=== PATIENT | female | born 1945 | race Caucasian/White ===

== ENCOUNTER 2017-04-29 16:16 | Emergency (ER) | payer MEDICARE, BC ==
--- NOTE | 2017-04-29 16:22 | UC ---
Respiratory Complaint HPI - HPI Summary HPI Summary: 71 year old female presents with complains of cough, post nasal drip and sinus congestion. - History of Current Complaint Stated Complaint: COUGH Time Seen by Provider: 04/29/17 16:22 - Risk Factors Pulmonary Embolism Risk Factors: Negative Cardiac Risk Factors: Negative Tuberculosis Risk Factors: Negative - Allergies/Home Medications Allergies/Adverse Reactions: Allergies Allergy/AdvReac Type Severity Reaction Status Date / Time Penicillins Allergy Severe Hives Verified 04/29/17 16:36 Sulfa Drugs Allergy Severe Hives Verified 04/29/17 16:36 ENVIRONMENTAL Allergy SNEEZING, Uncoded 04/29/17 16:36 ITCHY EYES, RUNNY NOSE Home Medications: Home Medications Benzonatate CAP* [Tessalon 100 MG CAP*] 100 mg PO QID PRN 04/29/17 [History Confirmed 04/29/17] PMH/Surg Hx/FS Hx/Imm Hx Previously Healthy: Yes - Surgical History Surgical History: Yes Surgery Procedure, Year, and Place: bilateral mastectomy/reconstruction 2008 - Social History Alcohol Use: None Substance Use Type: None Smoking Status (MU): Never Smoked Tobacco Review of Systems Constitutional: Negative Skin: Negative Eyes: Negative ENT: Sore Throat, Nasal Discharge, Sinus Congestion Respiratory: Cough Cardiovascular: Negative Gastrointestinal: Negative Genitourinary: Negative Motor: Negative Neurovascular: Negative Musculoskeletal: Negative Neurological: Negative Psychological: Negative All Other Systems Reviewed And Are Negative: Yes Physical Exam Triage Information Reviewed: Yes Vital Signs Reviewed: Yes Eye Exam: Normal ENT Exam: Normal Dental Exam: Normal Neck exam: Normal Neck: Positive: 1 Respiratory: Positive: Rhonchi, Wheezing Cardiovascular Exam: Normal Abdominal Exam: Normal Musculoskeletal Exam: Normal Neurological Exam: Normal Psychological Exam: Normal Skin Exam: Normal Respiratory Course/Dx - Differential Dx/Diagnosis Provider Diagnoses: cough. post nasal drip Discharge - Discharge Plan Condition: Stable Disposition: HOME Prescriptions: DOXYcycline CAP(*) [DOXYcycline 100MG CAP(*)] 100 mg PO BID #14 cap LoraTADine TAB(NF) [Claritin 10 MG TAB(NF)] 10 mg PO DAILY #30 tab Methylprednisolone [Medrol Dosepak 4 MG*] 4 mg PO .SEE FRANCOIS INSTRUCTION #21 tab guaiFENesin/CODIEN 100MG-10MG* [Robitussin AC 100Mg-10Mg*] 5 ml PO Q8H PRN #120 ml MDD 15 ml PRN Reason: Cough Patient Education Materials: Acute Bronchitis (ED), Acute Cough (ED) Referrals: Chu Mcdonald MD [Primary Care Provider] -
[2017-04-29 16:35] VITALS: BP 148/84
== END 2017-04-29 16:57 | disposition home or self-care (01) ==
LOC: UCEAST 16:16
DX: R05 Cough (principal); R09.82 Postnasal drip; Z88.0 Allergy status to penicillin; Z88.2 Allergy status to sulfonamides
CPT/HCPCS: 99212; G0463

== ENCOUNTER 2017-07-31 21:05 | Inpatient (IN) | payer MEDICARE, BC ==
[2017-07-31] MEDS ORDERED: Ketorolac INJ* 30 MG/ML 1 ML VIAL IV PUSH ONE (23:17)
[2017-07-31] MEDS ORDERED: NS 0.9% 1000 ML* 1,000 ML IV ONE (23:17)
[2017-08-01 00:08] LABS: Hematocrit 34 % (35-47); Hemoglobin 11.9 g/dl (12.0-16.0); Mean Corpuscular HGB Conc 35 g/dl (31-36); Mean Corpuscular Hemoglobin 35 pg (27-31); Mean Corpuscular Volume 101 fL (80-97); Mean Platelet Volume 8 um3 (7.4-10.4); Platelet Count 319 10^3/ul (150-450); Red Blood Count 3.43 10^6/ul (4.0-5.4); Red Cell Distribution Width 12 % (10.5-15); White Blood Count 14.5 10^3/ul (3.5-10.8)
[2017-08-01 00:19] LABS: EGFR Non-African American 55.3 (>60)
[2017-08-01 00:22] LABS: INR 0.93 (0.77-1.02)
[2017-08-01] MEDS ORDERED: Levofloxacin 750 MG IVPREMIX(* 750 MG/150 ML BAG IVPB ONE (00:46)
[2017-08-01 00:47] LABS: ABS Basophils 0 10^3/ul (0-0.2); ABS Eosinophils 0.1 10^3/ul (0-0.6); ABS Lymphocytes 0.8 10^3/ul (1.0-4.8); ABS Monocytes 1.6 10^3/ul (0-0.8); ABS Nucleated RBC 0 10^3/ul; Eosinophil % 0.7 % (0-6); Lymphocyte % 5.3 % (25-47); Nucleated Red Blood Cells % 0
[2017-08-01] MEDS ORDERED: NS 0.9% 1000 ML* 1,000 ML IV ONE (00:48)
[2017-08-01 01:15] LABS: Urine Appearance Clear; Urine Blood 1+ (Negative); Urine Color Straw; Urine Ketones Negative (Negative); Urine Protein Negative (Negative); Urine Specific Gravity 1.006 (1.010-1.030); Urine Urobilinogen Negative (Negative)
[2017-08-01] MEDS ORDERED: Acetaminophen TAB* 325 MG PO PRN (01:17)
[2017-08-01] MEDS ORDERED: Al Hydrox/Mg Hydrox/Simet LIQ* 30 ML UDC PO PRN (01:17)
[2017-08-01] MEDS ORDERED: Senna TAB PO PRN (01:17)
[2017-08-01] MEDS ORDERED: Docusate CAP* 100 MG PO PRN (01:17)
[2017-08-01] MEDS ORDERED: Ondansetron INJ* 2 MG/ML VIAL IV PRN (01:17)
[2017-08-01] MEDS ORDERED: Albuterol/Ipratropium NEB.SOL* Albuterol 2.5 MG/Ipratropium 0.5 MG 3 ML INH PRN (01:22)
--- NOTE | 2017-08-01 03:15 | HP ---
CC: Chu Mcdonald MD * HISTORY AND PHYSICAL: DATE OF ADMISSION: 08/01/17 TIME OF EVALUATION: 0100. CHIEF COMPLAINT: Cough and shortness of breath. HISTORY OF PRESENT ILLNESS: This is a 71-year-old female with past medical history of asthma and obstructive sleep apnea who presents to the emergency room with worsening shortness of breath, fever, and hypoxia. The patient states she has been suffering with a chronic cough since the fall. She had 2 episodes of bronchitis where she was on antibiotics and prednisone back on April 17. She really has not been herself since with this chronic dry cough. She was recently placed on a 10- day prednisone taper, which really has not made any difference in her cough. Today she was at [facility] with her sister who was getting an ablation when she felt more short of breath, cough worsened and she was noted to have a fever. She went to urgent care where she was noted to have decreased oxygen sats and they sent her to the emergency room for further evaluation. She states just today her cough and shortness of breath have been worse. No chest pain, no nausea, vomiting, diarrhea. No abdominal pain. She has had a decrease in appetite. No changes in her weight. Otherwise, remaining review of systems negative. In the emergency room, the patient had labs and imaging. She was given Toradol 30 mg, Levaquin and was referred to the hospitalist service for further evaluation. PAST MEDICAL HISTORY: 1. Asthma. 2. History of breast cancer, bilateral mastectomy in 1990 and reconstruction in 2008. 3. History of cataracts. 4. Arthritis. 5. Obstructive sleep apnea, on CPAP. 6. Hypertension. 7. Depression. MEDICATIONS: 1. Escitalopram 20 mg p.o. daily. 2. Hydrochlorothiazide 12.5 mg p.o. daily. 3. Meloxicam 7.5 mg daily. 4. Losartan 50 mg daily. 5. 20 mg daily. 6. Atrovent. 7. Flovent. 8. Albuterol. 9. Valacyclovir 500 mg b.i.d. as needed for hepatic oral outbreak. ALLERGIES: PENICILLIN, SULFA, ENVIRONMENTAL. FAMILY HISTORY: Reviewed, noncontributory. SOCIAL HISTORY: The patient lives in home with her who does have dementia, her son also lives with them. Her healthcare proxy is her sister and her son Ronnie. Code status is full code. No history of smoking. She has 1 glass of wine a few nights a week. REVIEW OF SYSTEMS: A 14-point review of systems as mentioned in the HPI, otherwise negative. PHYSICAL EXAMINATION GENERAL: No acute distress. Resting comfortably with her family at the bedside. VITAL SIGNS: Temp 101.9, pulse rate 98, respiratory rate 16, oxygen saturation 92% on room air, and blood pressure 157/73. HEENT: Head normocephalic. Pupils equal and reactive, anicteric. Oropharynx: Mucous membranes moist. Posterior oropharynx is erythematous. No exudate. NECK: Supple. No lymphadenopathy. No nuchal rigidity. RESPIRATORY: Diminished breath sounds. Bilateral rhonchi. No expiratory wheezing. CARDIAC: Regular rate and rhythm. Soft systolic murmur heard throughout. ABDOMEN: Soft, nontender, and nondistended. EXTREMITIES: No clubbing, cyanosis, or edema. NEUROLOGIC: Alert and oriented x3. No focal neurologic deficits. LABORATORY DATA: White count 14.5, hemoglobin 11.9, hematocrit 34, platelets 319,000. INR 0.93. Sodium 125, potassium 3.7, chloride 91, bicarb 23, BUN 17, creatinine 0.99, glucose 129. AST is 77, ALT 85, alk phos 157. Urinalysis is unremarkable. Serology is negative for flu. RADIOGRAPHIC DATA: Chest x-ray, increased opacification in the right lower lobe. EKG shows normal sinus rhythm with right bundle branch block. ASSESSMENT: This is a 71-year-old female with a past medical history of asthma , obstructive sleep apnea who presents to the emergency room with worsening shortness of breath and fever. Worsening shortness of breath and cough. Assessment: The patient's findings are most consistent with community acquired pneumonia. She was hypoxic in urgent care, no evidence of hypoxia here. She is on room air. In terms of her chronic cough, it could be her losartan which can cause a dry cough, not as common as an JEFF inhibitor, but worthwhile discontinuing to do a trial of, as it seems that the prednisone has not improved her dry cough at all. PLAN: 1. We will admit her for observation overnight. Continue on IV fluids, continue on Levaquin. We will complete her 10-day taper, she states that tomorrow is her last day. We will give her the 20 mg as prescribed. Continue on her inhaler regimen with incentive spirometer and cough suppressant. We will repeat her labs in the morning as well. 2. Elevated LFTs. The patient is asymptomatic from LFTs. We will repeat them in the morning. I will recommend outpatient followup if they remain elevated. Chronic medical problems: 1. Hypertension. As mentioned, stopping her losartan and we will start her on amlodipine. Going to hold her hydrochlorothiazide in the setting of giving her fluids. 2. Depression. Continue escitalopram. 3. Obstructive sleep apnea, resume her CPAP. 4. Asthma, resume her in-home inhaler regimen. 5. FEN. Placed her on a regular diet. 6. DVT prophylaxis. The patient's score is moderate risk. We will place her on heparin subcu t.i.d. 7. Code status. Full code. TIME SPENT: Greater than 50 minutes spent doing the history and physical, more than half time spent in direct patient contact. [id number]/[facility] #: [id number] JING
[2017-08-01] MEDS: guaiFENesin/CODIEN 100MG-10MG* 5 ML UDC PO PRN ×4 (04:04→21:09)
[2017-08-01] MEDS: Heparin VIAL(*) 5000 UNITS/ML VIAL (FIVE THOUSAND) SUBCUT SCH ×3 (05:02→21:11)
--- NOTE | 2017-08-01 05:32 | ED ---
Heather Ly Julia, scribed for Pierce Juárez MD on 07/31/17 at 2331 . Respiratory - HPI Summary HPI Summary: This patient is a 71 year old F presenting to [facility] accompanied by family with a chief complaint of fever of 101.9 beginning today. Patient reports productive cough for 1 month, sore throat, and SOB. Patient denies body aches, pain, chills , ear pain, or urinary symptoms. Patient was seen at [facility] urgent care and referred to ED. Patient is currently taking Prednisone, a corticosteroid, and Atrovent. - History of Current Complaint Chief Complaint: EDUpperRespComplaint Stated Complaint: ASTHMA/COUGH/SOB/FEVER Time Seen by Provider: 07/31/17 23:15 Hx Obtained From: Patient Onset/Duration: Gradual Onset, Still Present Timing: Constant Pain Intensity: 0 Sputum Amount: Swallowed by Patient Associated Signs and Symptoms: Fever, SOB - Allergy/Home Medications Allergies/Adverse Reactions: Allergies Allergy/AdvReac Type Severity Reaction Status Date / Time Penicillins Allergy Severe Hives Verified 07/31/17 21:37 Sulfa Drugs Allergy Severe Hives Verified 07/31/17 21:37 ENVIRONMENTAL Allergy SNEEZING, Uncoded 07/31/17 21:37 ITCHY EYES, RUNNY NOSE PMH/Surg Hx/FS Hx/Imm Hx Endocrine/Hematology History: Reports: Hx Thyroid Disease Denies: Hx Diabetes Cardiovascular History: Reports: Hx Hypertension - borderline Respiratory History: Reports: Hx Asthma Denies: Hx Chronic Obstructive Pulmonary Disease (COPD) GI History: Denies: Hx Ulcer History: Reports: Other Problems/Disorders - HX OF FREQ UTI, NO PROBLEMS LAST COUPLE OF YEARS Musculoskeletal History: Reports: Hx Arthritis Denies: Hx Rheumatoid Arthritis, Hx Osteoporosis Sensory History: Reports: Hx Cataracts, Hx Contacts or Glasses - READING GLASSES Denies: Hx Hearing Aid Opthamlomology History: Reports: Hx Cataracts, Hx Contacts or Glasses - READING GLASSES Neurological History: Denies: Hx Headaches Psychiatric History: Reports: Hx Depression - CONTROL WITH MEDS - Cancer History Cancer Type, Location and Year: breast - Surgical History Surgery Procedure, Year, and Place: bilateral mastectomy/reconstruction 2008 Hx Anesthesia Reactions: No Infectious Disease History: No Infectious Disease History: Denies: Hx Clostridium Difficile, Hx Hepatitis, Hx Human Immunodeficiency Virus (HIV), Hx of Known/Suspected MRSA, Hx Shingles, Hx Tuberculosis, Hx Known/ Suspected VRE, Hx Known/Suspected VRSA, History Other Infectious Disease, Traveled Outside the [place] in Last 30 Days - Social History Alcohol Use: None Substance Use Type: Reports: None Smoking Status (MU): Never Smoked Tobacco Review of Systems Constitutional: Negative - body aches Positive: Fever. Negative: Chills Positive: Sore Throat. Negative: Ear Ache Positive: Shortness Of Breath, Cough Positive: no symptoms reported All Other Systems Reviewed And Are Negative: Yes Physical Exam - Summary Physical Exam Summary: Appearance: Well appearing, no pain distress Skin: hot, dry, reflects adequate perfusion Head/face: normal Eyes: EOMI, FRANC ENT: no nasal congestion Neck: supple, non-tender Respiratory: CTA, breath sounds present Cardiovascular: RRR, pulses symmetrical Abdomen: non-tender, soft Bowel: present Musculoskeletal: normal, strength/ROM intact, no LE edema Neuro: normal, sensory motor intact, A&Ox3 Upon re-evaluation crackles at lung bases were present Triage Information Reviewed: Yes Vital Signs On Initial Exam: Initial Vitals Temp Pulse Resp BP Pulse Ox 101.9 F 98 16 157/73 93 07/31/17 21:30 07/31/17 21:30 07/31/17 21:30 07/31/17 21:30 07/31/17 21:30 Vital Signs Reviewed: Yes Diagnostics - Vital Signs Vital Signs Temp Pulse Resp BP Pulse Ox 07/31/17 21:30 101.9 F 98 16 157/73 93 - Laboratory Lab Results: Lab Results 07/31/17 07/31/17 07/31/17 Range/Units 23:40 23:40 23:40 WBC 14.5 H (3.5-10.8) 10^3/ul RBC 3.43 L (4.0-5.4) 10^6/ul Hgb 11.9 L (12.0-16.0) g/dl Hct 34 L (35-47) % MCV 101 H (80-97) fL MCH 35 H (27-31) pg MCHC 35 (31-36) g/dl RDW 12 (10.5-15) % Plt Count 319 (150-450) 10^3/ul MPV 8 (7.4-10.4) um3 Neut % (Auto) 82.7 (38-83) % Lymph % (Auto) 5.3 L (25-47) % [place] % (Auto) 11.1 H (1-9) % Eos % (Auto) 0.7 (0-6) % Baso % (Auto) 0.2 (0-2) % Absolute Neuts (auto) 12.0 H (1.5-7.7) 10^3/ul Absolute Lymphs (auto) 0.8 L (1.0-4.8) 10^3/ul Absolute Monos (auto) 1.6 H (0-0.8) 10^3/ul Absolute Eos (auto) 0.1 (0-0.6) 10^3/ul Absolute Basos (auto) 0 (0-0.2) 10^3/ul Absolute Nucleated RBC 0 10^3/ul Nucleated RBC % 0 INR (Anticoag Therapy) 0.93 (0.77-1.02) APTT 18.8 L (26.0-36.3) seconds Sodium 125 L (133-145) mmol/L Potassium 3.7 (3.5-5.0) mmol/L Chloride 91 L (101-111) mmol/L Carbon Dioxide 23 (22-32) mmol/L Anion Gap 11 (2-11) mmol/L BUN 17 (6-24) mg/dL Creatinine 0.99 H (0.51-0.95) mg/dL Est GFR ( Amer) 71.1 (>60) Est GFR (Non-Af Amer) 55.3 (>60) BUN/Creatinine Ratio 17.2 (8-20) Glucose 129 H (70-100) mg/dL Lactic Acid (0.5-2.0) mmol/L Calcium 8.9 (8.6-10.3) mg/dL Total Bilirubin 1.00 (0.2-1.0) mg/dL AST 77 H (13-39) U/L ALT 85 H (7-52) U/L Alkaline Phosphatase 157 H (34-104) U/L Troponin I 0.02 (<0.04) ng/mL Total Protein 6.8 (6.4-8.9) g/dL Albumin 3.5 (3.2-5.2) g/dL Globulin 3.3 (2-4) g/dL Albumin/Globulin Ratio 1.1 (1-3) Urine Color Urine Appearance Urine pH (5-9) Ur Specific [place] (1.010-1.030) Urine Protein (Negative) Urine Ketones (Negative) Urine Blood (Negative) Urine Nitrate (Negative) Urine Bilirubin (Negative) Urine Urobilinogen (Negative) Ur Leukocyte Esterase (Negative) Urine WBC (Auto) (Absent) Urine RBC (Auto) (Absent) Urine Bacteria (Absent) Urine Glucose (Negative) Influenza A (Rapid) (Negative) Influenza B (Rapid) (Negative) 07/31/17 08/01/17 08/01/17 Range/Units 23:40 00:55 01:06 WBC (3.5-10.8) 10^3/ul RBC (4.0-5.4) 10^6/ul Hgb (12.0-16.0) g/dl Hct (35-47) % MCV (80-97) fL MCH (27-31) pg MCHC (31-36) g/dl RDW (10.5-15) % Plt Count (150-450) 10^3/ul MPV (7.4-10.4) um3 Neut % (Auto) (38-83) % Lymph % (Auto) (25-47) % [place] % (Auto) (1-9) % Eos % (Auto) (0-6) % Baso % (Auto) (0-2) % Absolute Neuts (auto) (1.5-7.7) 10^3/ul Absolute Lymphs (auto) (1.0-4.8) 10^3/ul Absolute Monos (auto) (0-0.8) 10^3/ul Absolute Eos (auto) (0-0.6) 10^3/ul Absolute Basos (auto) (0-0.2) 10^3/ul Absolute Nucleated RBC 10^3/ul Nucleated RBC % INR (Anticoag Therapy) (0.77-1.02) APTT (26.0-36.3) seconds Sodium (133-145) mmol/L Potassium (3.5-5.0) mmol/L Chloride (101-111) mmol/L Carbon Dioxide (22-32) mmol/L Anion Gap (2-11) mmol/L BUN (6-24) mg/dL Creatinine (0.51-0.95) mg/dL Est GFR ( Amer) (>60) Est GFR (Non-Af Amer) (>60) BUN/Creatinine Ratio (8-20) Glucose (70-100) mg/dL Lactic Acid 0.7 (0.5-2.0) mmol/L Calcium (8.6-10.3) mg/dL Total Bilirubin (0.2-1.0) mg/dL AST (13-39) U/L ALT (7-52) U/L Alkaline Phosphatase (34-104) U/L Troponin I (<0.04) ng/mL Total Protein (6.4-8.9) g/dL Albumin (3.2-5.2) g/dL Globulin (2-4) g/dL Albumin/Globulin Ratio (1-3) Urine Color Straw Urine Appearance Clear Urine pH 7.0 (5-9) Ur Specific [place] 1.006 L (1.010-1.030) Urine Protein Negative (Negative) Urine Ketones Negative (Negative) Urine Blood 1+ H (Negative) Urine Nitrate Negative (Negative) Urine Bilirubin Negative (Negative) Urine Urobilinogen Negative (Negative) Ur Leukocyte Esterase Negative (Negative) Urine WBC (Auto) Trace(0-5/hpf) (Absent) Urine RBC (Auto) Trace(0-2/hpf) (Absent) Urine Bacteria Absent (Absent) Urine Glucose 1+(50 mg/dl) H (Negative) Influenza A (Rapid) Negative (Negative) Influenza B (Rapid) Negative (Negative) Result Diagrams: 07/31/17 23:40 07/31/17 23:40 Lab Statement: Any lab studies that have been ordered have been reviewed, and results considered in the medical decision making process. - Radiology CXR Radiology Interpretation Completed By: ED Physician - Left basilar infiltrate - EKG 9731 Cardiac Rate: NL EKG Rhythm: Sinus Rhythm - at88 BPM ST Segment: Non-Specific EKG Interpretation: RBBB Disposition - Course Course Of Treatment: Pt presents with fever of 101.9 beginning today. Patient reports productive cough for 1 month, sore throat, and SOB. EKG is of no acute concern. CXR reveals left basilar infiltrates. Labs reveal sodium of 125 and chloride of 91. IV abx, IV fluids. Admit for further. No hypoxia. - Differential Dx - Cardiopulmonary Differential Diagnoses - Cardiopulmonary: Pleurisy, Pulmonary Embolism, Other - pneumonia, UTI, sepsis - Diagnoses Provider Diagnoses: Left lower lobe pneumonia, Hyponatremia Discharge - Discharge Plan Condition: Fair Disposition: ADMITTED TO [facility] documentation as recorded by the Heather evans Julia accurately reflects the service I personally performed and the decisions made by Franck dooley Kirk, MD.
[2017-08-01] MEDS: NS 0.9% 1000 ML* 1,000 ML IV SCH ×3 (06:14→23:34)
[2017-08-01 06:43] LABS: ABS Basophils 0 10^3/ul (0-0.2); ABS Eosinophils 0 10^3/ul (0-0.6); ABS Lymphocytes 0.5 10^3/ul (1.0-4.8); ABS Monocytes 0.8 10^3/ul (0-0.8); ABS Neutrophils 9.9 10^3/ul (1.5-7.7); ABS Nucleated RBC 0 10^3/ul; Eosinophil % 0 % (0-6); Hematocrit 31 % (35-47); Lymphocyte % 4.7 % (25-47); Mean Corpuscular HGB Conc 35 g/dl (31-36); Mean Corpuscular Hemoglobin 36 pg (27-31); Mean Corpuscular Volume 100 fL (80-97); Mean Platelet Volume 7 um3 (7.4-10.4); Nucleated Red Blood Cells % 0; Platelet Count 288 10^3/ul (150-450); Red Cell Distribution Width 12 % (10.5-15); White Blood Count 11.1 10^3/ul (3.5-10.8)
[2017-08-01 07:06] LABS: EGFR Non-African American 68.7 (>60)
--- NOTE | 2017-08-01 07:47 | RAD ---
INDICATION: Shortness of breath. COMPARISON: Comparison is made with a prior chest x-ray study from May 16, 2017. TECHNIQUE: Dual-energy PA and lateral views of the chest were obtained. FINDINGS: The heart is within normal limits in size. There are bilateral lower lobe infiltrates suggestive of pneumonia. No pleural effusion is seen. IMPRESSION: BILATERAL LOWER LOBE INFILTRATES MOST CONSISTENT WITH PNEUMONIA. RECOMMEND FOLLOW-UP CHEST X-RAYS TO RESOLUTION.
[2017-08-01] MEDS: CMCS Escitalopram (NF) 10 MG TAB PO SCH (08:20)
[2017-08-01] MEDS: amLODIPine TAB* 5 MG PO SCH (08:20)
[2017-08-01] MEDS ORDERED: Spiriva Inhaler DEVICE* 1 EACH DEVICE INH ONE (09:00)
[2017-08-01] MEDS ORDERED: predniSONE TAB* 20 MG PO ONE (09:00)
[2017-08-01] MEDS: Tiotropium CAP.INH* CAP.INH/18 MCG (USE ORDER SET !) INH SCH (09:06)
--- NOTE | 2017-08-01 13:25 | PN ---
Subjective Date of Service: 08/01/17 Interval History: Ms. Bergman reports that she is doing minimally better today. She continues to have a harsh nonproductive cough and becomes quite short of breath with this. She denies chest pain, nausea, or abdominal pain. Objective Active Medications: Acetaminophen (Tylenol Tab*) 650 mg PO Q4H PRN Al Hydrox/Mg Hydrox/Simethicone (Maalox Plus*) 30 ml PO Q6H PRN Albuterol/Ipratropium (Duoneb (Albuterol 2.5 Mg/Ipratropium 0.5 Mg)) 1 neb INH Q4H PRN Amlodipine Besylate (Norvasc Tab*) 5 mg PO DAILY JASMYNE Docusate Sodium (Colace Cap*) 100 mg PO BID PRN Escitalopram Oxalate (Lexapro (Nf)) 20 mg PO QAM JASMYNE Guaifenesin/Codeine Phosphate (Robitussin Ac 100mg-10mg*) 5 ml PO Q4H PRN Heparin Sodium (Porcine) (Heparin Vial(*)) 5,000 units SUBCUT Q8HR JASMYNE Sodium Chloride (Ns 0.9% 1000 Ml*) 1,000 mls @ 125 mls/hr IV PER RATE JASMYNE Levofloxacin (Levaquin Tab*) 750 mg PO 2200 JASMYNE Montelukast Sodium (Singulair Tab*) 10 mg PO 2100 JASMYNE Ondansetron HCl (Zofran Inj*) 4 mg IV Q4H PRN Senna (Senokot Tab*) 1 tab PO BID PRN Tiotropium [place] (Spiriva Cap.Inh*) 1 cap INH DAILY [facility] Vital Signs: Temp Pulse Resp BP Pulse Ox 97.9 F 70 16 142/66 92 08/01/17 08:03 08/01/17 11:10 08/01/17 11:10 08/01/17 08:03 08/01/17 11:10 Oxygen Devices in Use Now: None Appearance: Female lying in bed in NAD Eyes: No Scleral Icterus Ears/Nose/Mouth/Throat: Mucous Membranes Moist Neck: Trachea Midline Respiratory: Symmetrical Chest Expansion and Respiratory Effort, - - Crackles to left base Cardiovascular: NL Sounds; No Murmurs; No JVD, No Edema Abdominal: NL Sounds; No Tenderness; No Distention Lymphatic: No Cervical Adenopathy Extremities: No Edema Skin: No Rash or Ulcers Neurological: Alert and Oriented x 3, NL Muscle Strength and Tone Nutrition: Taking PO's Result Diagrams: 08/01/17 06:26 08/01/17 06:26 Additional Lab and Data: . Assess/Plan/Problems-Billing Assessment: Ms. Bergman is a 71 yo female with a PMH of asthma, RANDALL, and CPAP who was admitted on 07/31/17 with pneumonia. - Patient Problems (1) Pneumonia Comment: - Minimal improvement overnght, deserves further monitoring give early AM admission and indolent course and failure of outpatient treatment. - Continue levaquin. (2) Hyponatremia Comment: - Improved with IV fluids. - Recheck in AM. (3) Elevated LFTs Comment: - No change overnight. - Likely secondary to acute illness - Recheck in AM. (4) Hypertension Comment: - SBP 140-150. - Continue amlodipine. (5) RANDALL (obstructive sleep apnea) Comment: - Continue home cpap. (6) Depression Comment: - Continue escitalopram. (7) DVT prophylaxis Comment: - Heparin SQ. (8) Full code status Status and Disposition: Inpatient. Plan for monitoring, IVF and abx overnight
[2017-08-01] MEDS ORDERED: Montelukast Sodium TAB* 10 MG PO SCH (21:00)
[2017-08-01] MEDS ORDERED: Levofloxacin TAB* 750 MG PO SCH (22:00)
[2017-08-02] MEDS: Heparin VIAL(*) 5000 UNITS/ML VIAL (FIVE THOUSAND) SUBCUT SCH (05:38)
[2017-08-02 07:17] LABS: EGFR Non-African American 76.2 (>60)
[2017-08-02] MEDS: amLODIPine TAB* 5 MG PO SCH (07:48)
[2017-08-02] MEDS: CMCS Escitalopram (NF) 10 MG TAB PO SCH (07:48)
[2017-08-02] MEDS: NS 0.9% 1000 ML* 1,000 ML IV SCH (07:50)
--- NOTE | 2017-08-02 08:56 | PN ---
Subjective Date of Service: 08/02/17 Interval History: Ms. Bergman reports that she had a frequent productive cough overnight. She remains off oxygen and is ambulating in her room independently. She denies chest pain, nausea, or abdominal pain and is tolerating oral intake well. Objective Active Medications: Acetaminophen (Tylenol Tab*) 650 mg PO Q4H PRN Al Hydrox/Mg Hydrox/Simethicone (Maalox Plus*) 30 ml PO Q6H PRN Albuterol/Ipratropium (Duoneb (Albuterol 2.5 Mg/Ipratropium 0.5 Mg)) 1 neb INH Q4H PRN Amlodipine Besylate (Norvasc Tab*) 5 mg PO DAILY JASMYNE Docusate Sodium (Colace Cap*) 100 mg PO BID PRN Escitalopram Oxalate (Lexapro (Nf)) 20 mg PO QAM JASMYNE Guaifenesin/Codeine Phosphate (Robitussin Ac 100mg-10mg*) 5 ml PO Q4H PRN Heparin Sodium (Porcine) (Heparin Vial(*)) 5,000 units SUBCUT Q8HR JASMYNE Sodium Chloride (Ns 0.9% 1000 Ml*) 1,000 mls @ 125 mls/hr IV PER RATE JASMYNE Levofloxacin (Levaquin Tab*) 750 mg PO 2200 JASMYNE Montelukast Sodium (Singulair Tab*) 10 mg PO 2100 JASMYNE Ondansetron HCl (Zofran Inj*) 4 mg IV Q4H PRN Senna (Senokot Tab*) 1 tab PO BID PRN Tiotropium [place] (Spiriva Cap.Inh*) 1 cap INH DAILY [facility] Vital Signs: Temp Pulse Resp BP Pulse Ox 98.2 F 71 16 130/63 96 08/02/17 07:30 08/02/17 07:30 08/02/17 07:45 08/02/17 07:30 08/02/17 07:45 Oxygen Devices in Use Now: None Appearance: Female lying in bed in NAD Eyes: No Scleral Icterus Ears/Nose/Mouth/Throat: Mucous Membranes Moist Neck: Trachea Midline Respiratory: Symmetrical Chest Expansion and Respiratory Effort, Clear to Auscultation Cardiovascular: NL Sounds; No Murmurs; No JVD, No Edema Abdominal: NL Sounds; No Tenderness; No Distention Lymphatic: No Cervical Adenopathy Extremities: No Edema Skin: No Rash or Ulcers Neurological: Alert and Oriented x 3, NL Muscle Strength and Tone Nutrition: Taking PO's Result Diagrams: 08/01/17 06:26 08/02/17 06:26 Additional Lab and Data: . Assess/Plan/Problems-Billing Assessment: Ms. Bergman is a 71 yo female with a PMH of asthma, RANDALL, and CPAP who was admitted on 07/31/17 with pneumonia. - Patient Problems (1) Pneumonia Comment: - Continued improvement, remains off oxygen and afebrile. - Continue levaquin to complete a 7 day course. (2) Hyponatremia Comment: - Resolved. (3) Elevated LFTs Comment: - Resolving. (4) Hypertension Comment: - SBP 140-150. - Continue amlodipine. (5) RANDALL (obstructive sleep apnea) Comment: - Continue home cpap. (6) Depression Comment: - Continue escitalopram. (7) DVT prophylaxis Comment: - Heparin SQ. (8) Full code status Status and Disposition: Inpatient. Discharge to home.
[2017-08-02] MEDS: Tiotropium CAP.INH* CAP.INH/18 MCG (USE ORDER SET !) INH SCH (11:01)
[2017-08-02 12:54] VITALS: BP 145/67
--- NOTE | 2017-08-02 15:51 | DS ---
AMENDED REPORT NOW INCLUDES COSIGNER DESIGNATION - ESIGNED BEFORE ADJUSTMENT CC: Dr. Mcdonald * DATE OF ADMISSION: 08/01/2017. DATE OF DISCHARGE: 08/02/2017. ATTENDING PHYSICIAN: Dr. Carmen Armijo * (dictation provided by Ivonne Simmons NP ). PRIMARY DIAGNOSIS: Pneumonia. SECONDARY DIAGNOSES: 1. History of asthma. 2. Breast cancer, status post bilateral mastectomy in 1990 and reconstruction in 2008. 3. History of cataract. 4. Arthritis. 5. Obstructive sleep apnea on CPAP. 6. Hypertension. 7. Depression. MEDICATIONS AT THE TIME OF DISCHARGE: 1. Benzonatate 100 mg p.o. q.i.d. prn. 2. Cranberry one tab p.o. q.a.m. 3. Calcium Carbonate with vitamin D one tab p.o. q.p.m. 4. Tylenol prn. 5. Escitalopram 20 mg p.o. q.a.m. 6. Diphenhydramine at bedtime prn. 7. Ipratropium two puffs inhaled p.o. b.i.d. 8. Ibuprofen prn. 9. Losartan 50 mg p.o. q.p.m. 10. Loratadine 10 mg p.o. daily. 11. Zafirlukast 20 mg p.o. q.p.m. 12. Guaifenesin with codeine 5 ml p.o. q.4 hours prn (new prescription). 13. Amlodipine 5 mg p.o. daily (new prescription). 14. Levaquin 750 mg p.o. daily (new prescription). The patient is discontinuing Doxycycline. She is also discontinuing Hydrochlorothiazide due to hyponatremia. HOSPITAL COURSE: Ms. Bergman is a 71-year-old female with a past medical history as outlined above who presented to the hospital on 08/01/2017 with concern for cough and shortness of breath. Please see the dictated history and physical from Aminata Valadez MD for complete details. In brief, the patient reported an ongoing chronic cough since the fall. She had been treated as an outpatient at least twice with Prednisone and antibiotics , but despite this she continued to have a dry cough. On the day of admission, she was noted to have a fever. She was evaluated at Urgent Care and then sent to the emergency room. In the emergency room, she had a chest x-ray which showed bilateral lower lobe infiltrates most consistent with pneumonia. The patient had a white blood cell count elevated to 14. Ms. Bergman was admitted to the hospital. She was not hypoxic during this admission and has not required oxygen. Her white blood cell count improved the following day to 11. During this admission, the patient had hyponatremia of 125. This has now resolved with IV fluids and is 133 on the day of discharge. She was on Hydrochlorothiazide as an outpatient and this has been discontinued. She has been switched to Amlodipine for blood pressure control. Ms. Bergman is doing well today. She continues to have a cough which is now productive, likely secondary in part to the hydration which she has received here in the hospital. She is ambulating in her room independently. She is not requiring oxygen. I think she is medically stable for discharge to home to complete a course of Levaquin. She was also provided with Guaifenesin with codeine for her cough. I have recommended that she follow-up very closely with Dr. Mcdonald early next week in order to ensure continued resolution of her pneumonia. I also recommend that the patient have a follow-up chest x-ray in six weeks. DISPOSITION: To home. DIET: Low salt. ACTIVITY: As tolerated. FOLLOW-UP PLANS: 1. Please follow-up with Dr. Mcdonald. Our office will be calling the patient with an appointment. 2. Please follow-up with a repeat chest x-ray in six weeks to ensure resolution of pneumonia. Approximately 60 minutes were spent in the discharge of this patient, more than half that time was spent with the patient at the bedside reviewing the events leading up to this hospitalization, performing the physical examination and reviewing the plan of care. IVONNE SIMMONS NP [id number]/[facility] #: [id number] JING
== END 2017-08-02 12:45 | disposition home or self-care (01) | DRG 194 ==
LOC: ED 21:05 → MED 08-01 01:17 → OBSVTOIN 08-01 13:56
PROVIDERS: ADMIT Pediatrics; ATTEND Internal Medicine
DX: J18.9 Pneumonia, unspecified organism (principal); E87.1 Hypo-osmolality and hyponatremia; F32.9 Major depressive disorder, single episode, unspecified; G47.30 Sleep apnea, unspecified; R79.89 Other specified abnormal findings of blood chemistry; M19.90 Unspecified osteoarthritis, unspecified site; I10 Essential (primary) hypertension; H26.9 Unspecified cataract; J45.909 Unspecified asthma, uncomplicated; Z85.3 Personal history of malignant neoplasm of breast; Z90.13 Acquired absence of bilateral breasts and nipples; Z88.0 Allergy status to penicillin; Z88.2 Allergy status to sulfonamides
CPT/HCPCS: 36415; 71046; 80053; 81003; 81015; 83605; 84484; 85025; 85610; 85730; 87040; 87502; 93005; 94640; 96374; 99284; A9270-GY; G0378; J1644; J1885; J7512

== ENCOUNTER 2017-12-02 17:17 | Emergency (ER) | payer MEDICARE, BC ==
[2017-12-02 17:34] VITALS: BP 155/85
[2017-12-02] MEDS ORDERED: DOXYcycline CAP(*) 100 MG PO ONE (18:10)
[2017-12-02] MEDS ORDERED: Acetaminophen TAB* 325 MG PO ONE (18:10)
--- NOTE | 2017-12-02 18:11 | UC ---
Respiratory Complaint HPI - HPI Summary HPI Summary: 71 y/o female presents to the urgent care c/o persistent dry cough w/ hoarseness , nasal congestion w/ yellowish nasal discharge since 11/23/2017. Pt reports symptoms are worsening despite taking OTC medications. Cough has worsen for the past 2 days that she hasn't been able to sleep and feels w/ fatigue. She has been using her Albuterol inhaler to alleviate cough. She also feels B/L ear pressure and sinus pain and DUMONT. today she has mild chills w/ low grade fever. Pt denies SOB, wheezing, chest pain, dizziness, abdominal pain, N/V/D. - History of Current Complaint Chief Complaint: UCRespiratory Stated Complaint: COUGH Time Seen by Provider: 12/02/17 17:55 Hx Obtained From: Patient Onset/Duration: Gradual Onset, Lasting Weeks - 1 week, Still Present, Worse Since - yesterday Timing: Intermittent Episodes Severity Initially: Mild Severity Currently: Moderate Pain Intensity: 2 Pain Scale Used: 0-10 Numeric Character: Cough: Nonproductive Aggravating Factors: Recumbent Position Alleviating Factors: Bronchodilator, OTC Meds Associated Signs And Symptoms: Positive: Fever, URI, Nasal Congestion, Hoarseness, Sinus Discomfort Related History: Seasonal Allergies - Risk Factors Pulmonary Embolism Risk Factors: Negative Cardiac Risk Factors: Negative Pseudomonas Risk Factors: Negative Tuberculosis Risk Factors: Negative - Allergies/Home Medications Allergies/Adverse Reactions: Allergies Allergy/AdvReac Type Severity Reaction Status Date / Time Penicillins Allergy Hives Verified 12/02/17 17:35 Sulfa (Sulfonamide Allergy Hives Verified 12/02/17 17:35 Antibiotics) ENVIRONMENTAL Allergy SNEEZING, Uncoded 09/19/17 13:56 ITCHY EYES, RUNNY NOSE PMH/Surg Hx/FS Hx/Imm Hx Previously Healthy: Yes Endocrine History: Dyslipidemia - diet controlled Cardiovascular History: Hypertension Respiratory History: Asthma - Surgical History Surgical History: Yes Surgery Procedure, Year, and Place: bilateral mastectomy/reconstruction 2008 - Family History Known Family History: Positive: Cardiac Disease, Hypertension, Diabetes - Social History Occupation: Retired Lives: With Family Alcohol Use: Daily Substance Use Type: None Smoking Status (MU): Never Smoked Tobacco - Immunization History Most Recent Influenza Vaccination: 04/23 Most Recent Pneumonia Vaccination: Can't recall year but has received Review of Systems Constitutional: Fever - low grade Skin: Negative Eyes: Negative ENT: Ear Ache - RT ear pressure, Nasal Discharge, Sinus Congestion, Sinus Pain/ Tenderness Respiratory: Cough - dry Cardiovascular: Negative Gastrointestinal: Negative Genitourinary: Negative Motor: Negative Neurovascular: Negative Musculoskeletal: Negative Neurological: Negative Psychological: Negative Is Patient Immunocompromised?: No All Other Systems Reviewed And Are Negative: Yes Physical Exam - Summary Physical Exam Summary: Vital Signs Reviewed: Yes General: well developed, well nourished female sitting in the examining table w/ o any apparent distress Eyes: Positive: Conjunctiva Clear - PERRLA, EOMI, fundi grossly normal ENT: Positive: Normal ENT inspection, Hearing grossly normal, Pharynx normal, Nasal congestion - edematous and erythematous nasal mucosa, Nasal drainage - yellowish drainage, Left external ear canal impacted w/ cerumen, Rt external ear canal clear. TMs normal. Negative: Tonsillar swelling, Tonsillar exudate. Positive tenderness over the frontal and maxillary sinuses. +yellowish PND Neck: Positive: Supple, Nontender, No Lymphadenopathy Respiratory: no orthopnea or dyspnea. Able to speak in full sentences, no retractions or accessory muscle use, no tripod position, stridor, or head bobbing. CTA bilaterally, mild wheezing in the left upper posterior lung wheezes , rhonchi, rales. Cardiovascular: Positive: RRR, No Murmur, Pulses Normal, Brisk Capillary Refill Abdomen Description: Positive: Nontender, No Organomegaly, Soft. Negative: CVA Tenderness (R), CVA Tenderness (L) Bowel Sounds: Positive: Present Musculoskeletal Exam: Normal Musculoskeletal: Positive: Strength Intact, ROM Intact, No Edema Neurological Exam: Normal Psychological Exam: Normal Skin Exam: Normal Triage Information Reviewed: Yes Vital Signs: Initial Vital Signs Temp 100.9 F 12/02/17 17:25 Pulse 88 12/02/17 17:25 Resp 18 12/02/17 17:25 BP 155/85 12/02/17 17:25 Pulse Ox 99 12/02/17 17:25 Diagnostic Evaluation - Laboratory O2 Sat by Pulse Oximetry: 99 Respiratory Course/Dx - Course Course Of Treatment: 71 y/o female presents to the urgent care c/o persistent dry cough w/ hoarseness, nasal congestion w/ yellowish nasal discharge since . Pt reports symptoms are worsening despite taking OTC medications. Cough has worsen for the past 2 days that she hasn't been able to sleep and feels w/ fatigue. She has been using her Albuterol inhaler to alleviate cough. She also feels B/L ear pressure and sinus pain and DUMONT. today she has mild chills w/ low grade fever. Pt denies SOB, wheezing, chest pain, dizziness, abdominal pain, N/V/D.Hx obtained. Pt w/ acute bacterial sinusitis on examination. Pt with more than 1 week of symptoms getting worse. Pt PCN and sulfa allergic. Pt Rx Doxycycline PO and flonase nasal spray. Tessalon PO for cough. Advised to continue w/ albuterol inhaler at night to alleviate cough. Pt' s BP is elevated today advised to decrease salt in diet, monitor BP and f/u with PCP for further management. Discharge instructions explained to Pt. Advised to Return to the clinic or PCP if symptoms do not improve.Pt understood and agreed with plan of care. - Differential Dx/Diagnosis Differential Diagnosis/HQI/PQRI: Asthma, Bronchitis, Influenza, Lower Resp Infection, Sinusitis, Other - URI Provider Diagnoses: 1-Acute bacterial sinusitis. 2-Uncontrolled HTN. 3-Cough. 4-Left ear w/ cerumen impaction Discharge - Sign-Out/Discharge Documenting (check all that apply): Discharge/Admit/Transfer - D/c home - Discharge Plan Condition: Stable Disposition: HOME Prescriptions: Acetaminophen TAB* [Tylenol TAB*] 650 mg PO Q6H PRN #30 tab PRN Reason: Fever Benzonatate CAP* [Tessalon 100 MG CAP*] 100 mg PO TID #21 cap Carbamide Peroxide 6.5% OTIC* [DEBROX 6.5% Otic*] 5 drop LEFT EAR BID #1 bottle DOXYcycline CAP(*) [DOXYcycline 100MG CAP(*)] 100 mg PO BID #19 cap Fluticasone NASAL SPRAY 50MCG* [Flonase NASAL SPRAY 50MCG*] 2 spray BOTH NARES DAILY #1 btl Patient Education Materials: Sinusitis (ED), Cerumen Impaction (ED), Low- Sodium Diet (ED) Referrals: Chu Mcdonald MD [Primary Care Provider] - 3 Days Additional Instructions: 1-Please take full course of antibiotic to avoid resistance. 2-Use Flonase nasal spray and saline drops as directed to clear sinuses 3-Take Tessalon PO tabs as directed and use the albuterol inhaler to alleviate cough. Increase fluid intake, rest and eat well. 4- If symptoms worsen or your develop SOB with fever and severe wheezing please go immediately to the ER further evaluation and treatment. 5- F/u with your PCP in 3 days if not improvement for further management 6-Your BP is elevated today. please decrease salt in your diet, monitor BP and if it continues to be elevated please f/u with your PCP for further management - Billing Disposition and Condition Condition: STABLE Disposition: HOME
== END 2017-12-02 18:45 | disposition home or self-care (01) ==
LOC: UCEAST 17:17
DX: J01.90 Acute sinusitis, unspecified (principal); B96.89 Other specified bacterial agents as the cause of diseases classified elsewhere; I10 Essential (primary) hypertension; R05 Cough; H61.22 Impacted cerumen, left ear; Z88.0 Allergy status to penicillin; Z88.2 Allergy status to sulfonamides; J45.909 Unspecified asthma, uncomplicated
CPT/HCPCS: 99202; A9270-GY; G0463

== ENCOUNTER 2019-07-01 17:01 | Emergency (ER) | payer MEDICARE, BC ==
--- NOTE | 2019-07-01 17:33 | ED ---
Respiratory - HPI Summary HPI Summary: This patient is a 73 year old F presenting to [facility] with a chief complaint of coughing and feeling lightheaded since this afternoon. Pt has PMHx of asthma. Pt was wheezing this afternoon, so she used her emergency inhaler, and then used a nebulizer around 15:30. Pt reports starting to feel worse afterwords. - History of Current Complaint Chief Complaint: EDRespiratoryDistress Stated Complaint: "ASTHMA ATTACK PER PT" Time Seen by Provider: 07/01/19 17:24 Hx Obtained From: Patient Onset/Duration: Gradual Onset Timing: Constant Current Severity: None Pain Intensity: 0 Character: Cough (Nonproductive) Sputum Amount: None Aggravating Factor(s): Other - asthma Alleviating Factor(s): Nothing Associated Signs and Symptoms: SOB - Allergy/Home Medications Allergies/Adverse Reactions: Allergies Allergy/AdvReac Type Severity Reaction Status Date / Time Penicillins Allergy Hives Verified 07/01/19 17:11 Sulfa (Sulfonamide Allergy Hives Verified 07/01/19 17:11 Antibiotics) ENVIRONMENTAL Allergy SNEEZING, Uncoded 07/01/19 17:11 ITCHY EYES, RUNNY NOSE Home Medications: Home Medications Albuterol 2.5MG/3ML (0.083%)* [Ventolin 2.5 MG/3 ML NEB.BRENDA*] 2.5 mg INH Q6H PRN 07/01/19 [History Confirmed 07/01/19] Albuterol HFA INHALER* [Ventolin HFA Inhaler*] 1 - 2 puff INH Q4H PRN 07/01/19 [ History Confirmed 07/01/19] Fluticasone HFA 110 mcg(NF) [Flovent HFA 110 mcg(NF)] 2 puff INH BID 07/01/19 [ History Confirmed 07/01/19] PMH/Surg Hx/FS Hx/Imm Hx Endocrine/Hematology History: Reports: Hx Thyroid Disease Denies: Hx Diabetes Cardiovascular History: Reports: Hx Hypertension Denies: Hx Pacemaker/ICD Respiratory History: Reports: Hx Asthma - MILD, Hx Sleep Apnea, Other Respiratory Problems/Disorders - PNUEMONIA Denies: Hx Chronic Obstructive Pulmonary Disease (COPD) GI History: Denies: Hx Ulcer History: Reports: Other Problems/Disorders - HX OF FREQ UTI, NO PROBLEMS LAST COUPLE OF YEARS Denies: Hx Renal Disease Musculoskeletal History: Reports: Hx Arthritis Denies: Hx Rheumatoid Arthritis, Hx Osteoporosis Sensory History: Reports: Hx Cataracts, Hx Contacts or Glasses - READING GLASSES Denies: Hx Hearing Aid Opthamlomology History: Reports: Hx Cataracts, Hx Contacts or Glasses - READING GLASSES Neurological History: Denies: Hx Headaches Psychiatric History: Reports: Hx Depression - CONTROL WITH MEDS Denies: Hx Panic Disorder - Cancer History Cancer Type, Location and Year: breast X2 - Surgical History Surgery Procedure, Year, and Place: bilateral mastectomy/reconstruction 1990/ 2008. TONSILS/ADENOIDS. CATARACTS BILATERAL EYES Hx Anesthesia Reactions: No Infectious Disease History: No Infectious Disease History: Denies: Hx Clostridium Difficile, Hx Hepatitis, Hx Human Immunodeficiency Virus (HIV), Hx of Known/Suspected MRSA, Hx Shingles, Hx Tuberculosis, Hx Known/ Suspected VRE, Hx Known/Suspected VRSA, History Other Infectious Disease, Traveled Outside the [place] in Last 30 Days - Family History Known Family History: Positive: Cardiac Disease, Hypertension, Diabetes - Social History Alcohol Use: Daily Substance Use Type: Reports: None Hx Tobacco Use: No Smoking Status (MU): Never Smoked Tobacco Review of Systems Positive: Shortness Of Breath, Cough Neurological: Other - lightheadedness All Other Systems Reviewed And Are Negative: Yes Physical Exam - Summary Physical Exam Summary: Appearance: The patient is well-nourished in no acute distress and in no acute pain. Skin: The skin is warm and dry, and skin color reflects adequate perfusion. HEENT: The head is normocephalic and atraumatic. The pupils are equal and reactive. The conjunctivae are clear and without drainage. Nares are patent and without drainage. Mouth reveals moist mucous membranes, and the throat is without erythema and exudate. The external ears are intact. The ear canals are patent and without drainage. The tympanic membranes are intact. Neck: The neck is supple with full range of motion and non-tender. There are no carotid bruits. There is no neck vein distension. Respiratory: Chest is non-tender. Crackles at right base Cardiovascular: Heart is regular rate and rhythm. There is no murmur or rub auscultated. There is no peripheral edema and pulses are symmetrical and equal. Abdomen: The abdomen is soft and non-tender. There are normal bowel sounds heard in all four quadrants and there is no organomegaly palpated. Musculoskeletal: There is no back tenderness noted. Extremities are non-tender with full range of motion. There is good capillary refill. There is no peripheral edema or calf tenderness elicited. Neurological: Patient is alert and oriented to person, place and time. The patient has symmetrical motor strength in all four extremities. Cranial nerves are grossly intact. Deep tendon reflexes are symmetrical and equal in all four extremities. Psychiatric: The patient has an appropriate affect and does not exhibit any anxiety or depression. Triage Information Reviewed: Yes Vital Signs On Initial Exam: Initial Vitals Temp Pulse Resp BP Pulse Ox 97.3 F 82 17 186/91 100 07/01/19 17:08 07/01/19 17:08 07/01/19 17:08 07/01/19 17:08 07/01/19 17:08 Vital Signs Reviewed: Yes Procedures - Sedation Patient Received Moderate/Deep Sedation with Procedure: No Diagnostics - Vital Signs Vital Signs Temp Pulse Resp BP Pulse Ox 07/01/19 17:08 97.3 F 82 17 186/91 100 - Laboratory Lab Statement: Any lab studies that have been ordered have been reviewed, and results considered in the medical decision making process. - Radiology CXR Radiology Interpretation Completed By: ED Physician Summary of Radiographic Findings: CXR reveals no acute processes, pending official radiology report. Re-Evaluation - Re-Evaluation First Eval Re-Evaluation Time: 18:37 Comment: Discussed results and plan of care with pt. Disposition - Course Course Of Treatment: Ms. Bergman was nontoxic in appearance with stable vitals on presentation. She is already taking antibiotics and using the nebulizer. Chest x-ray showed no acute pneumonia. She got significant relief of her symptoms with guaifenesin and codeine and I will treat her thusly. - Diagnoses Provider Diagnoses: Bronchitis Discharge ED - Sign-Out/Discharge Documenting (check all that apply): Patient Departure - Discharge - Discharge Plan Condition: Stable Disposition: HOME Prescriptions: Codeine Phosphate/Guaifenesin [Guaiatussin AC Liquid] 5 ml PO Q4HR #120 ml MDD 30 cc DOXYcycline CAP(*) [DOXYcycline 100MG CAP(*)] 100 mg PO BID #18 cap methylPREDNISolone [Medrol Dosepak 4 MG*] 4 mg PO .SEE FRANCOIS INSTRUCTION #1 tab Patient Education Materials: Acute Bronchitis (ED) Referrals: Chu Mcdonald MD [Primary Care Provider] - 3 Days Additional Instructions: Follow up with primary care provider within 2-3 days. Return to ED for any new or worsening symptoms. - Billing Disposition and Condition Condition: STABLE Disposition: Home - Attestation Statements Document Initiated by Mo: Yes Documenting Scribe: Sindhu Strong Provider For Whom Mo is Documenting (Include Credential): Barrett Lubin MD Scribe Attestation: Sindhu Ly, scribed for Barrett Lubin MD on 07/02/19 at 1101. Scribe Documentation Reviewed: Yes Provider Attestation: The documentation as recorded by the Sindhu evans accurately reflects the service I personally performed and the decisions made by , Barrett Lubin MD Status of Scribe Document: Viewed
[2019-07-01] MEDS ORDERED: guaiFENesin/CODIENE 100mg/10mg 5 ML UDC PO ONE (17:36)
--- OUTSIDE RECORDS SUMMARY | 2019-07-01 17:41 | XMS REPORT | Continuity of Care Document ---
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 [phone] Problems Description No Information Available Social History Type Date Description Comments Sex Unknown Tobacco Use Start: Unknown Never Smoked Cigarettes Smoking Status Reviewed: 09/06/17 Never Smoked Cigarettes ETOH Use Occasionally consumes alcohol Tobacco Use Start: Unknown Patient has never smoked Recreational Drug Use Denies Drug Use Exercise Type/Frequency Exercises regularly Allergies, Adverse Reactions, Alerts Active Allergies Reaction Severity Comments Date Sulfa hives 07/23/2003 Penicillins 01/29/2014 Dust Mites 09/06/2017 Medications Active Medications SIG Qnty Indications Ordering Provider Date Atrovent HFA bid 12.900gm J45.40 Sarah Myers, 05/25/2019 17mcg/Act CAREY GONZALEZ, CASING TRIMMER-BC Aerosol Proair HFA 2 puffs every 4 8.500gm Other Ordering 05/22/2019 108(90Base) hours as needed Provider mcg/Act Aerosol Flovent HFA 1 puff twice 21.2gm Other Ordering 05/22/2019 44mcg/Act daily Provider Aerosol Albuterol Mdi prn Eran Edwards 07/22/2003 Amanda March 90mcg/Dose Aerosol Losartan Potassium qd Unknown 50mg Zafirlukast qd Unknown 20mg Valacyclovir HCL bid prn Unknown 500mg Tablets Meloxicam take one tab Unknown 7.5mg Tablets daily Escitalopram Oxalate 1 by mouth Unknown every day 20mg Tablets Melatonin prn Unknown 3mg Capsules Benadryl Allergy prn Unknown 25mg Capsules Calcium qd Unknown Tablets Xylimelts 2 qhs for dry Unknown mouth Refresh use daily as Unknown 1.4-0.6% needed for dry Solution eyes Amlodipine Besylate take 1 tablet Unknown 5mg by mouth once Tablets daily Immunizations Description No Information Available Vital Signs Date Vital Result Comment 05/25/2019 10:49am Height 65.5 inches 5'5.50" Weight 144.00 lb Heart Rate 75 /min BP Systolic 130 mmHg BP Diastolic 70 mmHg O2 % BldC Oximetry 98 % BMI (Body Mass Index) 23.6 kg/m2 09/06/2017 8:44am Height 65.5 inches 5'5.50" Weight 136.00 lb Heart Rate 72 /min BP Systolic Sitting 122 mmHg BP Diastolic Sitting 84 mmHg Respiratory Rate 14 /min O2 % BldC Oximetry 98 % BMI (Body Mass Index) 22.3 kg/m2 Results Description No Information Available Procedures Description No Information Available Medical Devices Description No Information Available Encounters Description No Information Available Assessments Date Code Description Provider 05/25/2019 J45.40 Moderate persistent asthma, Sarah Myers DNP, RN, uncomplicated CASING TRIMMER-BC 05/25/2019 G47.33 Obstructive sleep apnea (adult) Sarah Myers DNP, RN, (pediatric) [facility]- Plan of Treatment Future Appointment(s):07/14/2019 1:00 pm - Florence Modi NP at [facility]05/25/2019 - Sarah Myers DNP, RN, [facility]- J45.40 Moderate persistent asthma, uncomplicatedNew Medication:Atrovent HFA 17 mcg/Act - bidNew Xrays:Chest PA & Lat 2 VWS, Ordered: 05/25/19New Orders: PFTW/Spirometry Vol Pre/Post Bronchdilat Dlco Complete, Ordered: 05/25/19Follow up:4-6 weeks with Florence (after testing)Recommendations:Restart Atrovent twice a day Continue Flovent 110 mcg twice a day, rinse mouth after each use Continue the Proair or nebulizer for wheezing as needed. It is okay to use the Proair prior to Flovent if preventing wheezing for exercise.G47.33 Obstructive sleep apnea (adult) (pediatric)Comments:06/22/17 HST AHI 30.1/hour, rocio oxygen 80% (<89% 23.4 minutes)On CPAP 5-15 cm AHI 4.5/hour, normalRecommendations:Continue PAP device, Benefitting and compliant with treatment. Cleaning Wipe off mask daily (baby wipe-no scent, or warm water) Clean mask, tubing, filter, and water chamber weekly in mild no scent dish soap and water. Hang to dry. If you have any sleepiness while driving you MUST avoid operating a vehicle or machinery. If you have difficulty with your equipment, or need to replace your mask or hoses, please contact your homecare agency. A weight change of 20 pounds or more may have an effect onyour equipment ; if you are experiencing problems please call for an appointment. If you have any further questions, please call the [facility] at [phone]. Functional Status Description No Information Available Mental Status Description No Information Available Referrals Description No Information Available
--- OUTSIDE RECORDS SUMMARY | 2019-07-01 17:41 | XMS REPORT | Continuity of Care Document ---
:1945 External Reference #:[id number] Author Name Skylar Woodard O.D. Address [address] [place] [address] Care Team Providers Name Role Phone Chu Mcdonald M.D. - Internal Care Team Information [employer] Medicine Problems Active Problems Provider Date Asthma Onset: Hypertension Onset: Osteoarthritis Onset: Depression Onset: Presbyopia Skylar Woodard O.D. Onset: 05/05/2019 Regular astigmatism Skylar Woodard O.D. Onset: 05/05/2019 Myopia Skylar Woodard O.D. Onset: 05/05/2019 Tear film insufficiency Skylar Woodard O.D. Onset: 05/05/2019 Squamous blepharitis Chu Arevalo M.D. Onset: 06/21/2016 Presence of intraocular lens Chu Arevalo M.D. Onset: 03/15/2016 Keratoconjunctivitis sicca, not specified as Chu Arevalo M.D. Onset: Sjogren's Combined form of senile cataract Chu Arevalo M.D. Onset: 12/27/2015 Social History Type Date Description Comments Sex Unknown ETOH Use Occasionally consumes alcohol Tobacco Use Start: Unknown Patient has never smoked Recreational Drug Use Denies Drug Use Smoking Status Reviewed: 05/05/19 Patient has never smoked Allergies, Adverse Reactions, Alerts Active Allergies Reaction Severity Comments Date Penicillin 12/19/2015 Sulfa Antibiotics 12/19/2015 Medications Active Medications SIG Qnty Indications Ordering Provider Date Refresh Tears as needed Chu Arevalo, 06/20/2016 0.5% Solution M.D. Losartan Potassium Breiman, Chu 50mg M.D. Tablets Escitalopram Oxalate Breiman, Chu 20mg M.D. Tablets Atrovent HFA Breiman, Chu 17mcg/Act M.D. Aerosol Cranberry Unknown 200mg Capsules Amlodipine Besylate daily Unknown 5mg Tablets Flovent HFA inhale 2 puffs Unknown 110mcg/Act by mouth twice a Aerosol day Immunizations Description No Information Available Vital Signs Description No Information Available Results Description No Information Available Procedures Description No Information Available Medical Devices Description No Information Available Encounters Description No Information Available Assessments Date Code Description Provider 05/05/2019 H04.123 Dry eye syndrome of bilateral lacrimal glands Skylar Woodard O.D. 05/05/2019 H52.13 Myopia, bilateral Skylar Woodard O.D. 05/05/2019 H52.223 Regular astigmatism, bilateral Skylar Woodard O.D. 05/05/2019 H52.4 Presbyopia Skylar Woodard O.D. Plan of Treatment 05/05/2019 - Skylar Woodard O.D.H04.123 Dry eye syndrome of bilateral lacrimal glandsComments:Both of your eyes appear to be dry. Use artificial tears as directed. You can use the tears more often if you are reading a book or are on the computer, as we tend to blink less, making our eyes dry out more.[facility] offers a few items in our optical department to help alleviate dry eye symptoms.Follow up:1-2 YEARS You can expect to have your eyes dilated at your next visit. If Dr. Woodard orders any additional testing, it may require extra time. We recommend that you bring sunglasses, as dilation dropsoften make you light sensitive until they wear off. We always recommend you bring someone to drive you home if you are uncomfortable driving with your eyes dilated. If you have any questions before your next visit, feel free to call our office at [phone].H52.13 Myopia, bilateralComments:You have Myopia, or near sightedness. I have given you a prescription for glasses.H52.223 Regular astigmatism, [id number] PresbyopiaComments:Smoking can increase the risk of developing or worsening any eye related disease, as well as affect your overall health. If you are a smoker, we strongly recommend that you quit.If you are not a smoker, we strongly recommend that you do not start. You have presbyopia. This is when the lens in your eye loses the ability to change focus , and happens as we age. A pair of reading glasses will help you see up close. Functional Status Description No Information Available Mental Status Description No Information Available Referrals Description No Information Available
[2019-07-01] MEDS ORDERED: DOXYcycline CAP(*) 100 MG PO ONE (18:41)
[2019-07-01 20:08] VITALS: BP 176/76
== END 2019-07-01 20:08 | disposition home or self-care (01) ==
LOC: ED 17:01
DX: J40 Bronchitis, not specified as acute or chronic (principal); E07.9 Disorder of thyroid, unspecified; I10 Essential (primary) hypertension; F32.9 Major depressive disorder, single episode, unspecified; Z90.13 Acquired absence of bilateral breasts and nipples; Z79.899 Other long term (current) drug therapy; Z88.0 Allergy status to penicillin; Z88.2 Allergy status to sulfonamides
CPT/HCPCS: 71046; 99282; A9270-GY

== ENCOUNTER 2019-07-28 15:59 | Emergency (ER) | payer MEDICARE, BC ==
--- OUTSIDE RECORDS SUMMARY | 2019-07-28 16:15 | XMS REPORT | Continuity of Care Document ---
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 Problems Description No Information Available Social History Type Date Description Comments Sex Unknown Tobacco Use Start: Unknown Never Smoked Cigarettes Smoking Status Reviewed: 07/14/19 Never Smoked Cigarettes ETOH Use Occasionally consumes alcohol Tobacco Use Start: Unknown Patient has never smoked Recreational Drug Use Denies Drug Use Exercise Type/Frequency Exercises regularly Allergies, Adverse Reactions, Alerts Active Allergies Reaction Severity Comments Date Sulfa hives 07/23/2003 Penicillins 01/29/2014 Dust Mites 09/06/2017 Medications Active Medications SIG Qnty Indications Ordering Provider Date Nilao Haley Henriquez 07/14/2019 SANTI Modi 200-25mcg/Inh Aerosol Albuterol Sulfate HFA Inhale 2 Puffs 42.5units Florence 07/14/2019 By Mouth Every SANTI Modi 108(90Base) mcg/Act 4 Hours as Aerosol Needed Atrovent HFA bid 12.900gm J45.40 Sarah Myers, 05/25/2019 17mcg/Act CAREY GONZALEZ, [employer] Aerosol Flovent HFA 1 puff twice 21.2gm Other Ordering 05/22/2019 44mcg/Act daily Provider Aerosol Albuterol Mdi sophia Edwards 07/22/2003 Amanda March 90mcg/Dose Aerosol Losartan Potassium qd Unknown 50mg Zafirlukast qd Unknown 20mg Valacyclovir HCL bid prn Unknown 500mg Tablets Escitalopram Oxalate 1 by mouth Unknown every day 20mg Tablets Melatonin prn Unknown 3mg Capsules Benadryl Allergy prn Unknown 25mg Capsules Calcium qd Unknown Tablets Xylimelts 2 qhs for dry Unknown mouth Refresh use daily as Unknown 1.4-0.6% needed for dry Solution eyes Amlodipine Besylate take 1 tablet Unknown 5mg by mouth once Tablets daily History Medications Proair HFA 2 puffs every 4 8.500gm Florence Modi, 05/22/2019 - 108(90Base) hours as needed [employer] 07/14/2019 mcg/Act Aerosol Immunizations Description No Information Available Vital Signs Date Vital Result Comment 07/14/2019 12:58pm Height 65.5 inches 5'5.50" Weight 144.00 lb Heart Rate 80 /min BP Systolic 140 mmHg BP Diastolic 80 mmHg O2 % BldC Oximetry 98 % BMI (Body Mass Index) 23.6 kg/m2 05/25/2019 10:49am Height 65.5 inches 5'5.50" Weight 144.00 lb Heart Rate 75 /min BP Systolic 130 mmHg BP Diastolic 70 mmHg O2 % BldC Oximetry 98 % BMI (Body Mass Index) 23.6 kg/m2 Results Description No Information Available Procedures Date Code Description Status 06/23/2019 80315 Diffusing Capacity Completed 06/23/2019 51774 Plethysmography Determination Lung Volumes & Per Airway Completed Resist 06/23/2019 85235 Pulmonary Function><Bronchodil Completed Medical Devices Description No Information Available Encounters Type Date Location Provider Dx Diagnosis Office Visit 05/25/2019 Pul[facility] Sarah Myers, J45.40 Moderate persistent 11:[facility]a [facility], RN, [employer]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, 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 G47.33 Obstructive sleep apnea (adult) (pediatric) Assessments Date Code Description Provider 07/14/2019 J45.909 Unspecified asthma, uncomplicated Florence Modi NP 07/14/2019 G47.33 Obstructive sleep apnea (adult) Florence Modi NP (pediatric) 06/23/2019 J45.909 Unspecified asthma, uncomplicated Amanda Trujillo MD 05/25/2019 J45.40 Moderate persistent asthma, Sarah Myers DNP, RN, uncomplicated [employer]- 05/25/2019 G47.33 Obstructive sleep apnea (adult) Sarah Myers DNP, RN, (pediatric) [facility]- Plan of Treatment Future Appointment(s):01/13/2020 11:30 am - Florence Modi NP at [facility]07/14/2019 - Florence Modi NPJ45.909 Unspecified asthma, uncomplicatedFollow up:6 monthsRecommendations:STOP flovent and atrovent and START Breo. Breo is a once per day medication. Please rinse your mouthout after you use it. Please let us know if the Breo works for you and we can send a prescription to your pharmacy.G47.33 Obstructive sleep apnea ( adult) (pediatric)Recommendations:If you have difficulty with your equipment, or need to replace your mask or hoses, please contact your homecare agency, [facility] . If you have any further questions, pleasecall the [facility] at [phone] If you have any sleepiness while driving you MUST avoid operating a vehicle or machinery. If you feel tired while driving, lime puller and take a nap or switch drivers. If you know you are sleepy and need to go somewhere, arrange for a ride or use public transportation. It is very important to not risk your safety or the safety of others. Functional Status Description No Information Available Mental Status Description No Information Available Referrals Description No Information Available
[2019-07-28 17:15] LABS: ABS Eosinophils 0.2 10^3/ul (0-0.6); ABS Lymphocytes 0.8 10^3/ul (1.0-4.8); ABS Monocytes 0.4 10^3/ul (0-0.8); ABS Neutrophils 3.5 10^3/ul (1.5-7.7); Eosinophil % 3.8 %; Hematocrit 41 % (35-47); Hemoglobin 14.2 g/dL (12.0-16.0); Lymphocyte % 16.9 %; Mean Corpuscular HGB Conc 35 g/dL (31-36); Mean Corpuscular Hemoglobin 35 pg (27-31); Mean Corpuscular Volume 101 fL (80-97); Mean Platelet Volume 7.8 fL (7.4-10.4); Nucleated Red Blood Cells % 0.1; Platelet Count 285 10^3/uL (150-450); Red Blood Count 4.06 10^6 /uL (3.70-4.87); Red Cell Distribution Width 12 % (10-15); White Blood Count 4.9 10^3/uL (3.5-10.8)
[2019-07-28 17:29] LABS: Albumin 4.5 g/dL (3.2-5.2); Albumin/Globulin Ratio 1.5 (1-3); BUN/Creatinine Ratio 19.3 (8-20); C Reactive Protein 4.42 mg/L (<8.01); EGFR African American 81.5 (>60); EGFR Non-African American 67.4 (>60); Globulin 3.1 g/dL (2-4); Potassium 3.8 mmol/L (3.5-5.0); Total Bilirubin 0.4 mg/dL (0.2-1.0); Total Protein 7.6 g/dL (6.4-8.9)
--- NOTE | 2019-07-28 19:44 | ED ---
Abdominal Pain/Female - HPI Summary HPI Summary: This pt is a 73 y/o female presenting [place] [facility] c/o intermittent right lower abd pain for the past 3 weeks now. Pt reports she was diagnosed with bronchitis on 07/01/19 and was prescribed doxycycline and prednisone. At first pt reports she thought her pain was medication related. Denies any trauma. Pt reports her right lower abd pain occasionally radiates to her right flank and right side of back, but predominantly her pain is on her abd. Denies fever, chills, nausea, vomiting. Pt reports coughing but attributes it to her asthma and not taking her inhaler today. PMHx: asthma. - History of Current Complaint Chief Complaint: EDAbdPain Stated Complaint: ABDOMINAL PAIN PER PT Time Seen by Provider: 07/28/19 19:36 Hx Obtained From: Patient Onset/Duration: Lasting Weeks - 3, Still Present Timing: Weeks Severity Currently: Mild Pain Intensity: 2 Pain Scale Used: 0-10 Numeric Location: Discrete At: RLQ Radiates: Yes Radiates to: Flank - right Aggravating Factor(s): Nothing Alleviating Factor(s): Nothing Associated Signs and Symptoms: Negative: Fever, Cough, Nausea, Vomiting Allergies/Adverse Reactions: Allergies Allergy/AdvReac Type Severity Reaction Status Date / Time Penicillins Allergy Hives Verified 07/28/19 16:06 Sulfa (Sulfonamide Allergy Hives Verified 07/28/19 16:06 Antibiotics) ENVIRONMENTAL Allergy SNEEZING, Uncoded 07/28/19 16:06 ITCHY EYES, RUNNY NOSE Home Medications: Home Medications Albuterol HFA INHALER* [Ventolin HFA Inhaler*] 2 puff INH Q4H PRN 07/28/19 [ History Confirmed 07/28/19] Calcium Carbonate/Vitamin D3 [Calcium 500 + Vit D Caplet] 1 tab PO DAILY [History Confirmed 07/28/19] Cranberry Fruit [Cranberry] 400 mg PO DAILY 07/28/19 [History Confirmed 07/28/19 ] Escitalopram * [Lexapro *] 20 mg PO DAILY 07/28/19 [History Confirmed 07/28/19] Fluticasone/Vilanterol MDI(NF) [Breo Ellipta MDI 200/25(NF)] 1 puff INH DAILY [History Confirmed 07/28/19] Ipratropium HFA INHALER(NF) [Atrovent Hfa Inhaler(NF)] 1 puff INH BID 07/28/19 [ History Confirmed 07/28/19] Losartan TAB* [Cozaar TAB*] 50 mg PO DAILY 07/28/19 [History Confirmed 07/28/19] diPHENhydraMINE PO* [Benadryl PO 25 MG TAB*] 12.5 mg PO BEDTIME PRN 07/28/19 [ History Confirmed 07/28/19] PMH/Surg Hx/FS Hx/Imm Hx Endocrine/Hematology History: Reports: Hx Thyroid Disease Denies: Hx Diabetes Cardiovascular History: Reports: Hx Hypertension Denies: Hx Pacemaker/ICD Respiratory History: Reports: Hx Asthma - MILD, Hx Sleep Apnea, Other Respiratory Problems/Disorders - PNUEMONIA Denies: Hx Chronic Obstructive Pulmonary Disease (COPD) GI History: Denies: Hx Ulcer History: Reports: Other Problems/Disorders - HX OF FREQ UTI, NO PROBLEMS LAST COUPLE OF YEARS Denies: Hx Renal Disease Musculoskeletal History: Reports: Hx Arthritis Denies: Hx Rheumatoid Arthritis, Hx Osteoporosis Sensory History: Reports: Hx Cataracts, Hx Contacts or Glasses - READING GLASSES Denies: Hx Hearing Aid Opthamlomology History: Reports: Hx Cataracts, Hx Contacts or Glasses - READING GLASSES Neurological History: Denies: Hx Headaches Psychiatric History: Reports: Hx Depression - CONTROL WITH MEDS Denies: Hx Panic Disorder - Cancer History Cancer Type, Location and Year: breast X2 - Surgical History Surgical History: Yes Surgery Procedure, Year, and Place: bilateral mastectomy/reconstruction 2008. TONSILS/ADENOIDS. CATARACTS BILATERAL EYES Hx Anesthesia Reactions: No Infectious Disease History: No Infectious Disease History: Denies: Hx Clostridium Difficile, Hx Hepatitis, Hx Human Immunodeficiency Virus (HIV), Hx of Known/Suspected MRSA, Hx Shingles, Hx Tuberculosis, Hx Known/ Suspected VRE, Hx Known/Suspected VRSA, History Other Infectious Disease, Traveled Outside the [place] in Last 30 Days - Family History Known Family History: Positive: Cardiac Disease, Hypertension, Diabetes - Social History Alcohol Use: Daily Substance Use Type: Reports: None Hx Tobacco Use: No Smoking Status (MU): Never Smoked Tobacco Review of Systems Negative: Fever, Chills Positive: Cough Positive: Abdominal Pain. Negative: Vomiting, Nausea Positive: flank pain - right All Other Systems Reviewed And Are Negative: Yes Physical Exam - Summary Physical Exam Summary: VITAL SIGNS: Reviewed. GENERAL: Patient is a well-developed and nourished female who is lying comfortable in the stretcher. Patient is not in any acute respiratory distress. HEAD AND FACE: No signs of trauma. No ecchymosis, hematomas or skull depressions. No sinus tenderness. EYES: PERRLA, EOMI x 2, No injected conjunctiva, no nystagmus. EARS: Hearing grossly intact. Ear canals and tympanic membranes are within normal limits. MOUTH: Oropharynx within normal limits. NECK: Supple, trachea is midline, no adenopathy, no JVD, no carotid bruit, no c- spine tenderness, neck with full ROM. CHEST: Symmetric, no tenderness at palpation LUNGS: Clear to auscultation bilaterally. No wheezing or crackles. CVS: Regular rate and rhythm, S1 and S2 present, no murmurs or gallops appreciated. ABDOMEN: Soft, right lower quadrant and right flank tenderness. No signs of distention. No rebound, no guarding, and no masses palpated. Bowel sounds are normal. EXTREMITIES: FROM in all major joints, no edema, no cyanosis or clubbing. NEURO: Alert and oriented x 3. No acute neurological deficits. Speech is normal and follows commands. SKIN: Dry and warm Triage Information Reviewed: Yes Vital Signs On Initial Exam: Initial Vitals Temp Pulse Resp BP Pulse Ox 98.1 F 80 19 152/88 99 07/28/19 16:02 07/28/19 16:02 07/28/19 16:02 07/28/19 16:02 07/28/19 16:02 Vital Signs Reviewed: Yes Procedures - Sedation Patient Received Moderate/Deep Sedation with Procedure: No Diagnostics - Vital Signs Vital Signs Temp Pulse Resp BP Pulse Ox 07/28/19 18:01 99.2 F 78 16 175/90 98 07/28/19 16:02 98.1 F 80 19 152/88 99 - Laboratory Lab Results: Lab Results 07/28/19 07/28/19 07/28/19 Range/Units 17:06 17:06 17:06 WBC 4.9 (3.5-10.8) 10^3/uL RBC 4.06 (3.70-4.87) 10^6 /uL Hgb 14.2 (12.0-16.0) g/dL Hct 41 (35-47) % MCV 101 H (80-97) fL MCH 35 H (27-31) pg MCHC 35 (31-36) g/dL RDW 12 (10-15) % Plt Count 285 (150-450) 10^3/uL MPV 7.8 (7.4-10.4) fL Neut % (Auto) 70.1 % Lymph % (Auto) 16.9 % [place] % (Auto) 8.9 % Eos % (Auto) 3.8 % Baso % (Auto) 0.3 % Absolute Neuts (auto) 3.5 (1.5-7.7) 10^3/ul Absolute Lymphs (auto) 0.8 L (1.0-4.8) 10^3/ul Absolute Monos (auto) 0.4 (0-0.8) 10^3/ul Absolute Eos (auto) 0.2 (0-0.6) 10^3/ul Absolute Basos (auto) 0.0 (0-0.2) 10^3/ul Absolute Nucleated RBC 0.0 10^3/ul Nucleated RBC % 0.1 Sodium 136 (135-145) mmol/L Potassium 3.8 (3.5-5.0) mmol/L Chloride 100 L (101-111) mmol/L Carbon Dioxide 29 (22-32) mmol/L Anion Gap 7 (2-11) mmol/L BUN 16 (6-24) mg/dL Creatinine 0.83 (0.51-0.95) mg/dL Est GFR ( Amer) 81.5 (>60) Est GFR (Non-Af Amer) 67.4 (>60) BUN/Creatinine Ratio 19.3 (8-20) Glucose 111 H (70-100) mg/dL Lactic Acid 0.5 (0.5-2.0) mmol/L Calcium 10.0 (8.6-10.3) mg/dL Total Bilirubin 0.40 (0.2-1.0) mg/dL AST 23 (13-39) U/L ALT 17 (7-52) U/L Alkaline Phosphatase 72 (34-104) U/L C-Reactive Protein 4.42 (<8.01) mg/L Total Protein 7.6 (6.4-8.9) g/dL Albumin 4.5 (3.2-5.2) g/dL Globulin 3.1 (2-4) g/dL Albumin/Globulin Ratio 1.5 (1-3) Lipase 54 (11.0-82.0) U/L Result Diagrams: 07/28/19 17:06 07/28/19 17:06 Lab Statement: Any lab studies that have been ordered have been reviewed, and results considered in the medical decision making process. Abdominal Pain Fem Course/Dx - Course Course Of Treatment: This pt is a 73 y/o female presenting to [facility] c/o intermittent right lower abd pain for the past 3 weeks now. Pt reports she was diagnosed with bronchitis on 07/01/19 and was prescribed doxycycline and prednisone. At first pt reports she thought her pain was medication related. Denies any trauma. Pt reports her right lower abd pain occasionally radiates to her right flank and right side of back, but predominantly her pain is on her abd. Denies fever, chills, nausea, vomiting. Pt reports coughing but attributes it to her asthma and not taking her inhaler today. PMHx: asthma. Blood work without any significant abnormality except for chloride 100, glucose 111. At this point the patient is asymptomatic. An abdominal/pelvic CT was ordered before I saw the patient and she is already drinking the contrast and is waiting for the abdominal pelvic CT to be performed. At this time the patient will be signed out to Dr. Khan to follow up on the abdominal pelvic CT and for the disposition of the patient. The patient is hemodynamically stable, alert and oriented 3. - Diagnoses Differential Diagnosis: Positive: Appendicitis, Bowel Obstruction, Constipation , Diverticulitis, Renal Colic Provider Diagnoses: Abdominal pain Discharge ED - Sign-Out/Discharge Documenting (check all that apply): Sign-Out Patient Signing out patient TO: Barrett Hendricks - pending CT abdomen/pelvis - Discharge Plan Condition: Stable Referrals: Chu Mcdonald MD [Primary Care Provider] - - Billing Disposition and Condition Condition: STABLE - Attestation Statements Document Initiated by Scribe: Yes Documenting Scribe: Erin Pina Provider For Whom Scribe is Documenting (Include Credential): Giacomo Givens MD Scribe Attestation: Erin Ly, scribed for Giacomo Givens MD on 07/28/19 at 2153. Scribe Documentation Reviewed: Yes Provider Attestation: The documentation as recorded by the scribe, Erin Pina accurately reflects the service I personally performed and the decisions made by me, Giacomo Givens MD Status of Scribe Document: Viewed
[2019-07-28] MEDS ORDERED: Iohexol 300* (CONTRAST) 10 ML SDV IV ONE (19:45)
--- NOTE | 2019-07-28 21:56 | ED ---
Progress - Progress Note Progress Note: Pt is a signout from Dr. Givens at 2200 on 07/28/[address] a/p results. - Results/Orders Results/Orders: CT a/p shows: 1. The appendix is not convincingly localized. No inflammatory change seen around the cecum. This study has not completely excluded appendicitis. 2. No other acute disease seen. As above. ED physician has reviewed this report. Course/Dx - Course Course Of Treatment: Pt is a signout from Dr. Givens at 2200 on 07/28/[address] a/p results. CT a/p shows: 1. The appendix is not convincingly localized. No inflammatory change seen around the cecum. This study has not completely excluded appendicitis. 2. No other acute disease seen. As above. She will be d/c'ed with dx of abd pain. She is stable and agreeable with this plan. - Diagnoses Provider Diagnoses: Abdominal pain Discharge ED - Sign-Out/Discharge Documenting (check all that apply): Patient Departure, Receiving Sign-Out Receiving patient FROM: Giacomo Givens - Discharge Plan Condition: Good Disposition: HOME Patient Education Materials: Acute Abdominal Pain (ED) Referrals: Chu Mcdonald MD [Primary Care Provider] - 1 Week (if still having pain) Additional Instructions: The blood work and imaging we did tonight was unremarkable, no discrete cause for your discomfort turned up. This is reassuring, but if your symptoms persist or worsen you may need further evaluation, so followup with your regular doctor is important. - Billing Disposition and Condition Condition: GOOD Disposition: Home - Attestation Statements Document Initiated by Mo: Yes Documenting Scribe: Aminata Enriquez Provider For Whom Mo is Documenting (Include Credential): Barrett Hendricks MD. Scribe Attestation: Aminata Ly, anaed for Barrett Hendricks MD. on 07/29/19 at 0544. Scribe Documentation Reviewed: Yes Provider Attestation: The documentation as recorded by the Aminata evans accurately reflects the service I personally performed and the decisions made by me, Barrett Hendricks MD. Status of Scribe Document: Viewed
[2019-07-28 23:32] VITALS: BP 148/80
== END 2019-07-28 23:29 | disposition home or self-care (01) ==
LOC: ED 15:59
DX: R10.31 Right lower quadrant pain (principal); E07.9 Disorder of thyroid, unspecified; I10 Essential (primary) hypertension; J45.909 Unspecified asthma, uncomplicated; F32.9 Major depressive disorder, single episode, unspecified; Z85.3 Personal history of malignant neoplasm of breast; Z90.13 Acquired absence of bilateral breasts and nipples; Z79.899 Other long term (current) drug therapy; Z88.0 Allergy status to penicillin; Z88.2 Allergy status to sulfonamides
CPT/HCPCS: 36415; 74177; 80053; 83605; 83690; 85025; 86140; 99283; Q9967